=== PATIENT | female | born 1995 | race American Indian/Alaskan Native ===

== ENCOUNTER 2019-08-10 13:05 | Emergency (ER) | payer OTHER ==
[2019-08-10 14:19] LABS: #Basophils 0.1 thou/uL (0.0-0.2); #Eosinphils 0.3 thou/uL (0.0-0.7); #Monocytes 0.5 thou/uL (0.11-0.59); #Neutrophils 6.9 thou/uL (1.40-6.50); %Basophils 0.5 % (0.0-1.0); %Eosinophils 2.6 % (0.0-10.0); %Lymphocytes 20.4 % (21.0-51.0); %Monocytes 4.9 % (0.0-10.0); %Neutrophils 71.6 % (42.0-75.0); Hemoglobin 13.8 g/dL (12.0-16.0); Mean Corpuscular HGB CONC 33.1 g/dL (32.0-36.0); Mean Corpuscular Hemoglobin 29.1 pg (27.0-31.0); Mean Platelet Volume 7.7 fL (7.4-10.4); Platelet Count 252 thou/uL (130-400); RBC Distribution Width 11.8 % (11.5-14.5); Red Blood Cell (RBC) Count 4.72 mill/uL (4.20-5.40); White Blood Cell (WBC) Count 9.7 thou/uL (4.8-10.8)
--- NOTE | 2019-08-10 14:57 | ULT ---
TRANSABDOMINAL AND TRANSVAGINAL PELVIC UTLRASOUND: INDICATION: A 23-year-old female with a history of and vaginal bleeding. TECHNIQUE: Yen scale, color Doppler, and spectral Doppler images were obtained of the pelvis via a transabdomin al and transvaginal approach. FINDINGS: The uterus measures 7.4 x 3.9 x 5.1 cm. There is no intrauterine gestation demonstrated. The endome trial stripe is thickened measuring approximately 1.1 cm. No free fluid is identified. The right ovary is enlarged measuring 4.8 x 3.8 x 2.4 cm with documentable flow. There is a complex cystic mass seen adjacent to the right adnexa measuring approximately 2.2 x 2.5 cm. The left ovary is somewhat difficult to evaluate within the left posterolateral aspect of the pelvis. The left ovary measures 2.5 x 1.5 x 1.1 cm with no internal Doppler flow; however, there is no morp hological evidence to suggest the presence of ovarian torsion. IMPRESSION: 1. Findings most consistent with a of undetermined location. There is no intrauterine pre gnancy identified. There is a complex cystic mass in the right adnexal region which could reflect a corpus luteal cyst related to early ; however, ectopic involving the right adnexa is not excluded. Recommend correlation with patient's beta HCG. Recommend clinical and sonographic followup. 2. Findings called to Dr. Goldberg at 2:48 p.m. on 08/10/2019. CODE CR POS: CET
[2019-08-10 15:10] LABS: Bacteria/HPF None Seen HPF (None Seen); Bilirubin Negative (Negative); Blood, Urine 1+ (Negative); Clarity Clear (Clear); Glucose, Urine (Dipstick) Normal (Negative); Leukocyte Negative Leu/uL (Negative); Nitrite Negative (Negative); Protein, Urine (Dipstick) Negative (Neg-Trace); Squamous Epithelial 0-3 HPF (0-3); Urobilinogen Normal mg/dL (Less than 2); WBC/HPF 0-3 HPF (0-3)
--- NOTE | 2019-08-10 19:29 | CON ---
DATE OF CONSULTATION: 08/10/2019 LOCATION: ER bed 16. CONSULTING PHYSICIAN: Dr. Goldberg/Stella. CHIEF COMPLAINT: Vaginal bleeding. HISTORY OF PRESENT ILLNESS: A 23-year-old G1, at unknown gestational age, but believed to be around 10 weeks, who presented to the emergency department with spotting. She reports she has not had any heavy bleeding, but has had spotting off and on for the last few days. She denies any pain whatsoever or other complaints. The patient reports that she is recently and from [facility]. 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 REVIEW OF SYSTEMS: Negative for head, eyes, ears, nose, throat, cardiovascular, respiratory, GI, , neuropsych, musculoskeletal, skin, or constitutional symptoms other than mentioned above. PAST MEDICAL HISTORY: None. PAST SURGICAL HISTORY: None. MEDICATIONS: vitamins. ALLERGIES: NO KNOWN DRUG ALLERGIES. SOCIAL HISTORY: Negative for tobacco, alcohol, or drug abuse. CUSTOMER SUPPORT ADVISOR HISTORY: This is her first . She denies any history of STDs or pelvic infections. She reports regular monthly cycles up until March, after which they became irregular with spotting in May and in June, around the time of her expected. She took a test approximately 1 week ago, which confirmed her . FAMILY HISTORY: Noncontributory. PHYSICAL EXAMINATION: VITAL SIGNS: Pulse 76, blood pressure 103/56, respiratory rate 18, O2 saturation 99% on room air, temperature 98.3. GENERAL: Awake, alert, no acute distress. CHEST: Nonlabored. ABDOMEN: Soft, nontender to palpation. No guarding. No rebound. No masses palpable. EXTREMITIES: No edema. LABORATORY DATA: HCG 13,081. Hemoglobin 13.8, hematocrit 41.6. Blood type B positive. IMAGING DATA: Transvaginal ultrasound revealed no intrauterine gestation demonstrated and endometrial stripe measuring approximately 1.1 cm. No free fluid. There is a right complex cystic mass seen adjacent to the right adnexa measuring 2.2 x 2.5 cm. No obvious yolk sac or pole is seen within this mass. Left ovary appears normal. ASSESSMENT AND PLAN: A 23-year-old G1 with a likely right-sided ectopic , given the elevated HCG level of 13,000, no intrauterine gestation seen, and adnexal mass in the right side. The patient is very stable at this point with completely normal vital signs. No pain. No free fluid or anemia. I discussed options with the patient including expectant versus medical versus surgical management. The patient became very tearful and requested that I relocate the gestation from the tube to the uterus and insisted that she had seen this done in [facility] more than 1 time. I discussed that I am not trained to do this type of procedure nor do I know anybody who can. The patient and her voiced understanding about this. After long deliberation, they would like to proceed with methotrexate therapy at this time for the best chance to save her tube. She will receive 50 mg/m2 IM today and will return for day 4 and day 7 Beta hCG I discussed avoiding folate and sunlight for the duration of her treatment and discussed the possibility that she will need another dose of medication in 7 days. I reiterate the importance of followup and following her HCG level down to zero and they voiced understanding. She was given strict precautions on when to return and understands that there is still possibility that she could rupture her tube and require emergency surgery. I discussed all of this with Dr. Douglas, who will set her up for followup. Job ID: [id number] MTDD
[2019-08-12 09:24] LABS: Chlamydia by PCR Not Detected (NotDetected); GC by PCR Not Detected (NotDetected)
== END 2019-08-10 18:56 | disposition home or self-care (01) ==
LOC: ERS 13:05
DX: O00.90 Unspecified ectopic pregnancy without intrauterine pregnancy (principal); Z3A.10 10 weeks gestation of pregnancy
CPT/HCPCS: 36415; 76856; 81003; 81015; 84702; 85025; 86850; 86900; 86901; 87086; 87480; 87491; 87510; 87591; 87660; 96372; J9250

== ENCOUNTER 2019-08-13 18:13 | Emergency (ER) | payer MEDICAID, OTHER ==
[2019-08-13 19:04] LABS: #Eosinphils 0.2 thou/uL (0.0-0.7); #Lymphocytes 1.9 thou/uL (1.20-3.40); #Monocytes 0.3 thou/uL (0.11-0.59); #Neutrophils 6.2 thou/uL (1.40-6.50); %Basophils 0.5 % (0.0-1.0); %Eosinophils 2.7 % (0.0-10.0); %Lymphocytes 21.6 % (21.0-51.0); %Monocytes 3.9 % (0.0-10.0); %Neutrophils 71.2 % (42.0-75.0); Hemoglobin 12.9 g/dL (12.0-16.0); Mean Corpuscular Hemoglobin 30.1 pg (27.0-31.0); Mean Corpuscular Volume 88.6 fL (78.0-98.0); Mean Platelet Volume 7.9 fL (7.4-10.4); Platelet Count 235 thou/uL (130-400); RBC Distribution Width 11.7 % (11.5-14.5); White Blood Cell (WBC) Count 8.8 thou/uL (4.8-10.8)
--- NOTE | 2019-08-13 20:03 | ULT ---
ULTRASOUND PELVIC ULTRASOUND TRANSVAGINAL DOPPLER DUPLEX: DATE: 08/13/2019 HISTORY: 23-year-old female with positive test and vaginal bleeding. Follow-up abnormal ultrasound. COMPARISON: 08/10/2019 TECHNIQUE: Transabdominal transducer and endovaginal transducer used to visualize intrapelvic contents with avelar scale, color-flow, and spectral analysis. FINDINGS: There is no interval change in the appearance of the right adnexa. This consists of an approximately 5 x 3 cm solid structure which may represent the right ovary. Indenting it or exophytically arising from it, there is an approximately 2 x 2 centimeter solid structure that contains a small round 0.9 c m anechoic cystic structure within it. This is surrounded by ill-defined, irregularly-shaped hypoechoic areas within the solid component. There is blood flow within all of these structures excep t for the anechoic 0.9 cm cystic portion. No embryonic pole or yolk sac is visualized within this. The endometrial stripe is 0.7 cm (7 mm). There is no intrauterine gestational sac. No significant free fluid in the cul-de-sac or adnexa. The left ovary is difficult to visualize. No interval change is detected since the prior ultrasound. IMPRESSION: 1. of indeterminate location: Serum beta hCG level has decreased from previous of 13,000 to current 7000. 2. No intrauterine gestation. 3. Complex appearance of right adnexa. This could either represent a right adnexal ectopic or a complex hemorrhagic corpus luteal cyst. 4. No interval change. 5. Recommend continued serial follow-up of serum beta-hCG, and continued serial follow-up pelvic and transvaginal ultrasounds.
== END 2019-08-13 20:15 | disposition home or self-care (01) ==
LOC: ERS 18:13
DX: O02.1 Missed abortion (principal)
CPT/HCPCS: 36415; 76856; 84702; 85025